=== PATIENT | female | born 1970 | race Caucasian/White ===

== ENCOUNTER 2025-11-09 03:52 | Emergency (ER) | payer BC ==
[2025-11-09 04:18] LABS: Hematocrit 35.3 % (36.0-47.0); Hemoglobin 12.5 g/dL (12.0-16.0); MDiff Complete? YES; Mean Corpuscular Hemoglobin 29.7 pg (27.0-31.0); Mean Corpuscular Volume 83.4 fl (78.0-98.0); Platelet Count 610 10x3/uL (130-400); Red Blood Cell (RBC) Count 4.23 mill/uL (4.20-5.40); White Blood Cell (WBC) Count 9.5 10x3/uL (4.8-10.8)
[2025-11-09 04:21] LABS: INR-International Normal Ratio 0.9; Prothrombin Time 12.3 sec (12.0-14.7)
[2025-11-09 04:22] LABS: PTT 25.8 sec (22.9-36.1)
[2025-11-09] MEDS ORDERED: Acetaminophen 500 MG TAB ONE (04:27)
[2025-11-09 04:29] LABS: Troponin I Less than 0.010 ng/mL (< 0.028)
[2025-11-09 04:30] LABS: ALT (SGPT) 52 U/L (Less than 34); AST (SGOT) 52 U/L (11-34); Albumin 4.2 g/dL (3.1-4.5); Alkaline Phosphatase 35 U/L (40-110); Anion Gap 16 mmol/L (10-20); BUN (Urea Nitrogen) 11 mg/dL (9.8-20.1); Bilirubin, Total 0.3 mg/dL (0.3-1.2); CK (CPK) 43 U/L (29-168); Calc. Creatinine Clearance 0 mL/min (70-130); Calcium 9.2 mg/dL (7.8-10.44); Carbon Dioxide 22 mmol/L (22-29); Chloride 106 mmol/L (98-107); Globulin 2.7 g/dL (2.4-3.5); Glucose 110 mg/dL (70-105); Potassium 3.6 mmol/L (3.5-5.1); Sodium 140 mmol/L (136-145)
[2025-11-09] MEDS ORDERED: Prochlorperazine 10 MG/2 ML VIAL ONE (04:32)
[2025-11-09 04:52] LABS: Glucose, Urine (Dipstick) Negative (Negative); Leukocyte Negative (Negative); Protein, Urine (Dipstick) Negative (Neg-Trace); Specific Gravity, Urine Less/Equal 1.005 (1.005-1.030)
[2025-11-09 04:53] LABS: Bacteria/HPF None Seen HPF (None Seen); CAUTI Indications for Culture Dysuria,urgency,freq; RBC/HPF None Seen HPF (0-3); Urine Culture Reflex No No; WBC/HPF None Seen HPF (0-3)
[2025-11-09 04:56] LABS: Cocaine Metabolite Screen Negative (Negative); THC/Cannabinoid Screen Negative (Negative); Tricyclic Screen Negative (Negative)
[2025-11-09] MEDS ORDERED: Aspirin Chewable 81 MG TAB ONE (05:43)
[2025-11-09] MEDS ORDERED: Iopamidol 370 76% 100 ML VIAL ONE (09:00)
== END 2025-11-09 05:49 | disposition home or self-care (01) ==
LOC: NAV ERS 03:52
DX: G45.9 Transient cerebral ischemic attack, unspecified (principal); R29.701 NIHSS score 1; E11.9 Type 2 diabetes mellitus without complications; K21.9 Gastro-esophageal reflux disease without esophagitis; F17.210 Nicotine dependence, cigarettes, uncomplicated; Z79.82 Long term (current) use of aspirin; Z79.84 Long term (current) use of oral hypoglycemic drugs; Z79.4 Long term (current) use of insulin; Z79.899 Other long term (current) drug therapy
CPT/HCPCS: 36416; 70450; 70496; 70498; 80053; 80306; 81001; 82550; 84484; 85025; 85610; 85730; 93005; 94760; 96374; J0780; J7030; Q9967